=== PATIENT | male | born 1940 | race Caucasian/White ===

== ENCOUNTER 2017-05-07 01:25 | Inpatient (IN) | payer MEDICARE ==
[2017-05-07] VITALS (14 sets, daily range): BP systolic 101–140; BP diastolic 48–68
[~2017-05-07] VITALS: Ht 185.4 cm; Wt 113.9 kg
--- NOTE | 2017-05-07 01:35 | ED.ADGEN ---
Past History Past Medical History: A-Fib, CAD, CVA, Hypertension, Other Past Surgical History: Other Adult General Chief Complaint Chief Complaint " I don't know.. 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 Pt. new to [facility], recent moved from [facility]. No specific ill contacts. Son is nurse who works at [employer]. Pt. has followed with . Pt. had increased tremors tonight and fall at home about approximately mid- night when he got up to go to bathroom. Pt. denies injury. Pt. had been watching TV prior to change in mental status. . Pt. complaints of being cold with chills. Had some confusion- felt it was 1968, but knew Dalia was president. Pt. did take some Ambien before going to bed. Pt. has hx. Sleep apnea, Hx. TIA/CVA, HTN, Afib., Hx. "small" IA, cardiac dz required pacemaker 6 months ago,. Pt. has never smoked. Per family has some changes in speech tonight per family. . Pt. has no complaints currently, but complained of being cold initially. Pt. 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 . Pt. Rt.hand dominate. . Moves feet and arms on request. Lt leg weak, Lt education department registrar weaker. Does have an intentional tremor. Review of Systems Review of Systems Constitutional: Hx. of chills [] Eyes: Denies change in visual acuity, redness, or eye pain [] HENT: Denies nasal congestion or sore throat [] Respiratory: Hx of cough Cardiovascular: No additional information not addressed in HPI [] GI: Denies abdominal pain, nausea, vomiting, bloody stools or diarrhea [] : Denies dysuria or hematuria [] Musculoskeletal: Denies back pain or joint pain [] Integument: Denies rash or skin lesions [] Neurologic: Denies headache, focal weakness or sensory changes [] Family states he is more confused, and speech is off. Endocrine: Denies polyuria or polydipsia [] Family History Family History Non-contributory Current Medications Current Medications Current Medications Medications (Trade) Dose Ordered Sig/Loy Start Time Stop Time Status Last Admin Dose Admin Ondansetron HCl (Zofran) 4 mg 1X ONCE 05/07/17 02:00 05/07/17 02:39 DC 05/07/17 02:00 4 MG Sodium Chloride 1,000 ml @ 100 mls/hr Q10H 05/07/17 01:45 05/07/17 11:44 Vancomycin HCl 1 gm/Sodium Chloride 250 ml @ 250 mls/hr 1X ONCE 05/07/17 02:30 05/07/17 03:29 DC 05/07/17 02:30 250 MLS/HR See Nursing for home meds. Allergies Allergies Allergies Coded Allergies Type Severity Reaction Last Updated Verified iodine Allergy Unknown 05/07/17 Yes Currently not available- 1:46 Hrs. Physical Exam Physical Exam Constitutional:no acute distress, non-toxic appearance. Fever. HENT: Normocephalic, atraumatic, bilateral external ears normal, oropharynx moist, no oral exudates, nose normal. [] Eyes: PERRLA, EOMI, conjunctiva normal, no discharge. [] Neck: Normal range of motion, no tenderness, supple, no stridor. [] Cardiovascular:Tachycardia Heart rate , irregular rhythm, no murmur , PMI to Lt. Lungs & Thorax: Bilateral breath sounds decreased bases on auscultation [] Pacer Lt . Abdomen: Bowel sounds normal, soft, no tenderness, no masses, no pulsatile masses. Obese, Skin: Warm, dry, no erythema, no rash. Back: No tenderness, no CVA tenderness. [] Extremities: No tenderness, no cyanosis, no clubbing,, move limbs on request, trace edema. []Skin red Lt ankle Neurologic: Alert and oriented X 3, normal motor function, normal sensory function, no focal deficits noted. [] Psychologic: Affect anxious, , mood depressed Current Patient Data Vital Signs Vital Signs Date Time Temp Pulse Resp B/P (MAP) Pulse Ox O2 Delivery O2 Flow Rate FiO2 05/07/17 01:30 102.2 71 24 89 Room Air Lab Results Laboratory Tests Test 05/07/17 01:41 05/07/17 01:47 05/07/17 01:50 Blood pH 7.43 (7.35-7.46) Blood Gas PCO2 35 mmHg (35-46) Blood Gas PO2 56 mmHg (71-100) L Blood Gas HCO3 23 mmol/L (21-28) Arterial Bld O2 Saturation (Calc) 90 % (92-99) L FiO2 21 % White Blood Count 13.0 x10^3/uL (4.0-11.0) H Red Blood Count 4.05 x10^6/uL (4.30-5.70) L Hemoglobin 12.6 g/dL (13.0-17.5) L Hematocrit 37.3 % (39.0-53.0) L Mean Corpuscular Volume 92 fL (79-100) Mean Corpuscular Hemoglobin 31 pg (25-35) Mean Corpuscular Hemoglobin Concent 34 g/dL (31-37) Red Cell Distribution Width 14.4 % (11.5-14.5) Platelet Count 173 x10^3/uL (140-400) Neutrophils (%) (Auto) 80 % (31-73) H Lymphocytes (%) (Auto) 13 % (24-48) L Monocytes (%) (Auto) 7 % (0-9) Eosinophils (%) (Auto) 1 % (0-3) Basophils (%) (Auto) 0 % (0-3) Neutrophils # (Auto) 10.3 x10^3uL (1.8-7.7) H Lymphocytes # (Auto) 1.6 x10^3/uL (1.0-4.8) Monocytes # (Auto) 0.9 x10^3/uL (0.0-1.1) Eosinophils # (Auto) 0.1 x10^3/uL (0.0-0.7) Basophils # (Auto) 0.0 x10^3/uL (0.0-0.2) Prothrombin Time 22.8 SEC (9.4-11.4) H Prothrombin Time INR 2.2 (0.9-1.1) H PTT 29 SEC (23-33) D-Dimer (Kristina) 0.62 mg/L (0.00-0.50) H Sodium Level 141 mmol/L (136-145) Potassium Level 3.8 mmol/L (3.5-5.1) Chloride Level 105 mmol/L (98-107) Carbon Dioxide Level 26 mmol/L (21-32) Anion Gap 10 (6-14) Blood Urea Nitrogen 13 mg/dL (8-26) Creatinine 1.3 mg/dL (0.7-1.3) Estimated GFR (Cockcroft-Gault) 53.8 Glucose Level 104 mg/dL (70-99) H Lactic Acid Level 3.0 mmol/L (0.4-2.0) H Calcium Level 8.3 mg/dL (8.5-10.1) L Magnesium Level 1.7 mg/dL (1.8-2.4) L Total Bilirubin 0.4 mg/dL (0.2-1.0) Direct Bilirubin 0.1 mg/dL (0.0-0.2) Aspartate Amino Transferase (AST) 22 U/L (15-37) Alanine Aminotransferase (ALT) 30 U/L (16-63) Alkaline Phosphatase 73 U/L (46-116) Creatine Kinase 165 U/L (39-308) Creatine Kinase MB (Mass) 1.0 ng/mL (0.0-3.6) Creatine Kinase MB Relative Index 0.6 % (0-4) Troponin I Quantitative < 0.017 ng/mL (0-0.055) FO-Qwf-N-Type Natriuretic Peptide 185 pg/mL (0-449) Total Protein 6.5 g/dL (6.4-8.2) Albumin 3.6 g/dL (3.4-5.0) Lipase 100 U/L (73-393) Urine Collection Type Void Urine Color Yellow Urine Clarity Clear Urine pH 5.0 Urine Specific Lennox 1.020 Urine Protein Neg (NEG-TRACE) Urine Glucose (UA) Neg mg/dL (NEG) Urine Ketones (Stick) Neg mg/dL (NEG) Urine Blood Small (NEG) Urine Nitrite Neg (NEG) Urine Bilirubin Neg (NEG) Urine Urobilinogen Dipstick 0.2 mg/dL (0.2 mg/dL) Urine Leukocyte Esterase Neg (NEG) Urine RBC 1-2 /HPF (0-2) Urine WBC Occ /HPF (0-4) Urine Squamous Epithelial Cells Occ /LPF Urine Bacteria Few /HPF (0-FEW) Urine Mucus Slight /LPF Urine Opiates Screen Neg (NEG) Urine Methadone Screen Neg (NEG) Urine Barbiturates Neg (NEG) Urine Phencyclidine Screen Neg (NEG) Urine Amphetamine/Methamphetamine Neg (NEG) Urine Benzodiazepines Screen Neg (NEG) Urine Cocaine Screen Neg (NEG) Urine Cannabinoids Screen Neg (NEG) Urine Ethyl Alcohol Neg (NEG) EKG EKG My interpretation of EKG shows a paced rhythm`at 75, with intraventricular block.[] Radiology/Procedures Radiology/Procedures My interpretation chest x-ray shows Cardiac silhouette. Left lung field infiltrates. Pacer. Degenerative joint changes.[] I interpretation of CT shows volume loss, white matter dz, , small vessel, no finding acute bleed or obvious large CVA- see formal report when available Course & Med Decision Making Course & Med Decision Making Pertinent Labs and Imaging studies reviewed. (See chart for details). Discussed presentation, testing and treatment plan with Dr. Chavez and family. Will admit for further tx. and evaluation. Critical Care 90 min. [] Final Impression Final Impression 1. Mental Status Change 2. Fever and Chills- Sepsis 3. Hypoxia-room air 4. Elevated Lactic Acid 5. Leukocytosis 6. Anemia 7. Hypomagnesium (1,7) 8. Intentional Tremor 9. Hx CADz. 10. Hx. Sleep Apnea 11. Pneumonia 12. Hx. Afib- Pacemaker /Dif. Problems: Dragon Disclaimer Dragon Disclaimer This electronic medical record was generated, in whole or in part, using a voice recognition dictation system. NE TUCKER MD May 07, 2017 01:35
[2017-05-07] MEDS: IV NORMAL SALINE 1,000ML 1,000 ML IV SCH ×2 (01:45→05:04)
[2017-05-07] MEDS ORDERED: ONDANSETRON PF 4 MG/2 ML VIAL. IV ONE (02:00)
--- NOTE | 2017-05-07 02:11 | RAD ---
INDICATION: AMS, CVA COMPARISON: None. TECHNIQUE: Axial CT images obtained through the head without intravenous contrast. One or more of the following individualized dose reduction techniques were utilized for this examination: 1. Automated exposure control; 2. Adjustment of the mA and/or kV according to patient size; 3. Use of iterative reconstruction technique. FINDINGS: No intracranial hemorrhage. No midline shift. Basal cisterns patents. Ventricles and sulci are globally prominent. No acute osseous abnormality. Orbits and paranasal sinuses unremarkable. Scattered foci of low attenuation within the white matter. IMPRESSION: 1. No acute intracranial hemorrhage. 2. Scattered regions of low attenuation within the white matter. Non-specific in nature but frequently secondary to chronic small vessel ischemic disease. 3. Prominence of ventricles and sulci which is frequently secondary to age related volume loss. Electronically signed by: Jemal Diaz MD (05/07/2017 2:07 AM) [facility]
[2017-05-07 02:14] LABS: BGAS PH 7.43 (7.35-7.46)
[2017-05-07] MEDS ORDERED: WARF5TAB7 PO (02:18)
[2017-05-07] MEDS ORDERED: AMIO200T2 PO ×2 (02:18)
--- NOTE | 2017-05-07 02:23 | EKG ---
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
[2017-05-07 02:26] LABS: HEMATOCRIT 37.3 % (39.0-53.0); HEMOGLOBIN 12.6 g/dL (13.0-17.5); MEAN CORPUSCULAR HEMOGLOBIN 31 pg (25-35); MEAN CORPUSCULAR HGB CONC 34 g/dL (31-37); MEAN CORPUSCULAR VOLUME 92 fL (79-100); RED BLOOD COUNT 4.05 x10^6/uL (4.30-5.70)
[2017-05-07 02:27] LABS: BASO % 0 % (0-3); EOS # 0.1 x10^3/uL (0.0-0.7); EOS % 1 % (0-3); LYMPH # 1.6 x10^3/uL (1.0-4.8); LYMPH % 13 % (24-48); MONO # 0.9 x10^3/uL (0.0-1.1); MONO % 7 % (0-9); NEUT # 10.3 x10^3uL (1.8-7.7); NEUT % 80 % (31-73); PLATELET COUNT 173 x10^3/uL (140-400); RED CELL DISTRIBUTION WIDTH 14.4 % (11.5-14.5)
[2017-05-07] MEDS ORDERED: VANCOMYCIN 1 GM in IV NORMAL SALINE 250ML 250 ML IV ONE (02:30)
[2017-05-07 02:34] LABS: ALBUMIN 3.6 g/dL (3.4-5.0); CALCIUM 8.3 mg/dL (8.5-10.1); CREATININE 1.3 mg/dL (0.7-1.3); DIRECT BILIRUBIN 0.1 mg/dL (0.0-0.2); GFR 53.8; MAGNESIUM 1.7 mg/dL (1.8-2.4); POTASSIUM 3.8 mmol/L (3.5-5.1); TOTAL BILIRUBIN 0.4 mg/dL (0.2-1.0); TOTAL PROTEIN 6.5 g/dL (6.4-8.2)
[2017-05-07 02:35] LABS: AMPHETAMINE/METHAMPHETAMINE NEG (NEG); BARBITURATES NEG (NEG); BENZODIAZEPINES NEG (NEG); CANNABINOIDS NEG (NEG); COCAINE NEG (NEG); METHADONE NEG (NEG); OPIATES NEG (NEG); PHENCYCLIDINE NEG (NEG)
[2017-05-07] MEDS ORDERED: IV NORMAL SALINE 250ML 250 ML ONE ×2 (02:39→02:40)
[2017-05-07] MEDS ORDERED: VANCOMYCIN 1 GM VIAL. ONE ×2 (02:39→02:40)
[2017-05-07] MEDS ORDERED: IV NORMAL SALINE 1,000ML 1,000 ML IV ONE (02:45)
[2017-05-07 02:50] LABS: BACTERIA,URINE FEW /HPF (0-FEW); BILIRUBIN,URINE NEG (NEG); CLARITY,URINE CLEAR; COLOR,URINE YELLOW; GLUCOSE,URINE NEG (NEG); NITRITE,URINE NEG (NEG); SQUAMOUS EPITHELIAL CELL,UR OCC /LPF; UROBILINOGEN,URINE 0.2 mg/dL (0.2 mg/dL); WBC,URINE OCC /HPF (0-4)
[2017-05-07] MEDS ORDERED: MAGNESIUM SULFATE 1GM 100 ML IV ONE (03:00)
[2017-05-07] MEDS ORDERED: AZITHROMYCIN 250 MG TABLET. PO ONE (03:00)
[2017-05-07] MEDS ORDERED: ACETAMINOPHEN 500 MG TABLET PO ONE (03:15)
--- NOTE | 2017-05-07 07:25 | RAD ---
Portable chest, 05/07/2017: History: Shortness of breath, altered mental status, cardiac disease A left-sided transvenous pacemaker is in place with 2 leads extending into the right heart. The heart size and pulmonary vascularity are at the upper limits of normal. No pulmonary consolidation is seen. There is no evidence of pleural fluid. IMPRESSION: 1. Borderline vascular congestion. 2. No acute infiltrates.
[2017-05-07 07:34] LABS: BASO # 0.1 x10^3/uL (0.0-0.2); BASO % 1 % (0-3); EOS % 0 % (0-3); HEMATOCRIT 33.7 % (39.0-53.0); HEMOGLOBIN 11.3 g/dL (13.0-17.5); LYMPH # 0.6 x10^3/uL (1.0-4.8); LYMPH % 4 % (24-48); MEAN CORPUSCULAR HEMOGLOBIN 31 pg (25-35); MEAN CORPUSCULAR HGB CONC 34 g/dL (31-37); MEAN CORPUSCULAR VOLUME 93 fL (79-100); MONO # 1.2 x10^3/uL (0.0-1.1); MONO % 8 % (0-9); NEUT # 13.5 x10^3uL (1.8-7.7); NEUT % 88 % (31-73); PLATELET COUNT 150 x10^3/uL (140-400); RED BLOOD COUNT 3.64 x10^6/uL (4.30-5.70); RED CELL DISTRIBUTION WIDTH 14.2 % (11.5-14.5); WHITE BLOOD COUNT 15.4 x10^3/uL (4.0-11.0)
[2017-05-07 07:44] LABS: CALCIUM 7.5 mg/dL (8.5-10.1); CREATININE 1.3 mg/dL (0.7-1.3); GFR 53.8; MAGNESIUM 1.7 mg/dL (1.8-2.4); POTASSIUM 3.2 mmol/L (3.5-5.1); TOTAL BILIRUBIN 0.5 mg/dL (0.2-1.0); TOTAL PROTEIN 5.9 g/dL (6.4-8.2)
[2017-05-07 08:36] LABS: % BANDS 11 % (0-9); % LYMPHS 7 % (24-48); % METAS 1 % (0-0); % MONOS 6 % (0-10); % SEGS 75 % (35-66)
[2017-05-07 08:37] LABS: PLATELET CLUMP PRESENT; PLT ESTIMATE ADEQUATE (ADEQUATE)
[2017-05-07] MEDS: POTASSIUM CHLORIDE 40 MEQ in IV RINGERS SOLUTION,LACTATED 1,000 ML IV SCH ×2 (08:45→20:07)
[2017-05-07] MEDS ORDERED: MAGNESIUM SULFATE 2GM 50 ML IV ONE (09:00)
[2017-05-07] MEDS ORDERED: POTASSIUM CHLORIDE 20 MEQ TABLET.ER. PO ONE (09:00)
[2017-05-07 09:02] LABS: INFLUENZA A PATIENT NEGATIVE (NEGATIVE); INFLUENZA B PATIENT NEGATIVE (NEGATIVE)
--- NOTE | 2017-05-07 11:10 | RAD ---
Bilateral lower extremity venous duplex ultrasound. 05/07/2017 Indication: [Lower extremity edema] Comparison study: [None] Discussion: Sonographic evaluation of the deep veins of bilateral arteries was performed. This includes grayscale imaging and color duplex imaging with spectral analysis. No evidence of deep venous thrombosis is seen. Interrogated veins are compressible and demonstrate augmentable blood flow and color Doppler imaging. Impression: No evidence of deep venous thrombosis involving either lower extremity.
[2017-05-07] MEDS: AMIODARONE HCL 200 MG TABLET PO SCH (11:27)
[2017-05-07] MEDS ORDERED: ACETAMINOPHEN 325 MG TABLET PO PRN (11:30)
--- NOTE | 2017-05-07 11:44 | RAD ---
Indication elevated d-dimer. Ventilation perfusion lung scan was performed. The study is correlated with a single view of the chest obtained earlier the same day. 19 mCi of xenon-133 was administered to evaluate ventilation. 5.5 mCi of technetium labeled MAA was administered to evaluate perfusion. No significant ventilatory abnormality is seen. On the perfusion study no definite V/Q mismatch or dominant profusion anomaly is seen. The study is considered low probability for pulmonary embolus. IMPRESSION: Low probability VQ scan for pulmonary embolus
[2017-05-07] MEDS ORDERED: PIP/TAZO PER PHARMACY MC PRN (15:00)
--- NOTE | 2017-05-07 15:33 | CARD ---
APPROVED REPORT EXAM: Two-dimensional and M-mode echocardiogram with Doppler and color Doppler. Other Information Quality : GoodHR: 69bpm Rhythm : NSR INDICATION Dyspnea, Pacemaker 2D DIMENSIONS RVDd3.3 (2.9-3.5cm)Left Atrium(2D)3.8 (1.6-4.0cm) IVSd1.2 (0.7-1.1cm)Aortic Root(2D)3.4 (2.0-3.7cm) LVDd4.3 (3.9-5.9cm)LVOT Diameter2.4 (1.8-2.4cm) PWd1.2 (0.7-1.1cm)LVDs3.6 (2.5-4.0cm) FS (%) 17.6 %SV30.9 ml LVEF(%)37.0 (>50%) Aortic Valve AoV Peak Daniel.212.4cm/sAoV VTI41.5cm AO Peak GR.18.0mmHgLVOT Peak Daniel.103.0cm/s LVOT VTI 19.44cmAO Mean GR.10mmHg DIOMEDES (VMAX)2.94wt4OSA (VTI)2.19cm2 Mitral Valve MV E Qlxwzqxc40.0cm/sMV E Peak Gr.3mmHg MV DECEL [id number] A Zsurcpad96.7cm/s MV E Mean Gr.1mmHgE/A Ratio1.4 MV A Cglesmnq144ym Pulmonary Valve PV Peak Sgdmnnke379.6cm/sPV Peak Grad.10mmHg Tricuspid Valve TR P. Rwiptsgt590ay/sTR Peak Gr.37mmHg Pulmonary Vein S1 Xygpbjjz54.5cm/sD2 Ikjhxpuj57.7cm/s LEFT VENTRICLE Very difficult exam due to limited patient cooperation. The left ventricle is normal size. There is m ild concentric left ventricular hypertrophy. The left ventricular systolic function is normal and the ejection fraction is within normal range. The Ejection Fraction is 55 % Septal motion consistent wit h conduction abnormality. Transmitral Doppler flow pattern is Grade II-pseudonormal filling dynamics. RIGHT VENTRICLE The right ventricle is normal size. There is normal right ventricular wall thickness. The right ventr icular systolic function is normal. There is a pacemaker lead noted in the RA/RV ATRIA The left atrium size is normal. The right atrium size is normal. The interatrial septum is intact wit h no evidence for an atrial septal defect or patent foramen ovale as noted on 2-D or Doppler imaging. AORTIC VALVE The aortic valve is not well visualized but appears to open adequately. The aortic valve is mildly sc lerotic. Doppler and Color Flow revealed no significant aortic regurgitation. There is no significant aortic valvular stenosis. MITRAL VALVE The mitral valve leaflets are thickened. There is no evidence of mitral valve prolapse. There is no m itral valve stenosis. Doppler and Color Flow revealed no mitral valve regurgitation noted. TRICUSPID VALVE Doppler and Color Flow revealed mild tricuspid regurgitation. The pulmonary artery systolic pressure is estimated at 40 mmHg. There is mild pulmonary hypertension. PULMONIC VALVE The pulmonic valve is not well visualized but appears to open adequately. Doppler and Color Flow reve aled trace pulmonic valvular regurgitation. There is no pulmonic valvular stenosis by spectral Dopple r. GREAT VESSELS The aortic root is normal in size. The ascending aorta is normal in size. The pulmonary artery is nor mal. Suboptimal subcostal window but the IVC is normal in size and collapses >50% with inspiration. PERICARDIAL EFFUSION There is no evidence of significant pericardial effusion. Critical Notification Critical Value: No <Conclusion> The left ventricular systolic function is normal and the ejection fraction is within normal range. Th e Ejection Fraction is 55 % Septal motion consistent with conduction abnormality. Doppler and Color Flow revealed mild tricuspid regurgitation. The pulmonary artery systolic pressure is estimated at 40 mmHg. There is mild pulmonary hypertension. There is a pacemaker lead noted in the RA/RV
[2017-05-07] MEDS ORDERED: WARFARIN 5 MG TABLET. PO SCH (16:00)
[2017-05-07] MEDS: PIPERACILLIN/TAZOBACTAM 3.375 GM in IV NORMAL SALINE 50ML 50 ML IV SCH (16:27)
--- NOTE | 2017-05-07 18:33 | HP ---
ADMIT DATE: 05/07/2017 REASON FOR ADMISSION: Fever, chills, and somewhat altered mental status. HISTORY OF PRESENT ILLNESS: The history was given by the patient. This is a 76-year-old gentleman who woke up at midnight. He felt very weak and went down to the floor. He did no know his name and was not answering questions appropriate. He himself told me he was lifting weights and then felt weak, shaky, and chills. Denies cough or around anyone that was ill. He did fall a couple of weeks ago and hurt the left leg. PAST MEDICAL HISTORY: Sleep apnea. He has a pacemaker, atrial fibrillation, and sick sinus syndrome. SOCIAL HISTORY: Does not smoke. No alcohol. He is retired. He is and takes care of his who is blind. 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 MEDICATIONS: Reviewed and are available on the MAR. ALLERGIES: IODINE. REVIEW OF SYSTEMS: A little bit of left leg pain, weakness, chills, mild shortness of breath, and insomnia. OBJECTIVE: VITAL SIGNS: Temperature this morning was 103 degrees, pulse 100, blood pressure 101/48, respiratory rate 21, and pulse ox was 96% on 2 liters. He also had an 89% on room air in the Emergency Room. GENERAL: The patient is hard of hearing. HEENT: His eyes were slightly bloodshot. His nose is patent. Posterior pharynx is clear. He has a large tongue relative to the posterior pharynx. NECK: Supple. LUNGS: Clear. CARDIOVASCULAR: Regular rhythm and rate. ABDOMEN: Soft and nontender. EXTREMITIES: Left ankle area has a slight bit of erythema and warmth; otherwise, negative. There are no cords palpated in both legs up to the thighs. NEUROLOGIC: Mental status he is a little confused and is currently having chills. LABORATORY DATA: White blood cell count 15.4 with bandemia, hemoglobin 11.3, and hematocrit 33.7. Blood gas showed O2 of 56 with 90% saturation. D-dimer slightly elevated at 0.62. His VQ scan was negative. Potassium was 3.2. Lactic acid was 3.0, has come down to 1.0, magnesium 1.7, and blood cultures have grown out gram-positive cocci in chains. Flu was negative. ASSESSMENT: 1. Sepsis with gram-positive bacteremia. 2. Mild cellulitis of the left ankle area. 3. ____ by history. 4. Sleep apnea by history. 5. Sick sinus syndrome with pacemaker. 6. History of paroxysmal atrial fibrillation. PLAN: IV antibiotics, oxygen, close monitoring, DVT prophylaxis, and will get an echocardiogram as well. BUTCH YOUNGBLOOD DO DR: OK/yaima JOB#: [id number] / [id number]
[2017-05-07] MEDS ORDERED: VANCOMYCIN 2 GM in IV NORMAL SALINE 500ML 500 ML IV ONE (20:00)
[2017-05-07] MEDS: VANCOMYCIN PER PHARMACY MC PRN (20:17)
[2017-05-08] VITALS (22 sets, daily range): BP systolic 104–160; BP diastolic 51–76
[2017-05-08] MEDS: PIPERACILLIN/TAZOBACTAM 3.375 GM in IV NORMAL SALINE 50ML 50 ML IV SCH ×5 (00:44→23:45)
[2017-05-08] MEDS: POTASSIUM CHLORIDE 40 MEQ in IV RINGERS SOLUTION,LACTATED 1,000 ML IV SCH ×2 (05:33→12:17)
[2017-05-08 06:19] LABS: BASO # 0.1 x10^3/uL (0.0-0.2); BASO % 1 % (0-3); EOS % 0 % (0-3); HEMATOCRIT 35.1 % (39.0-53.0); HEMOGLOBIN 11.9 g/dL (13.0-17.5); LYMPH # 1.2 x10^3/uL (1.0-4.8); LYMPH % 8 % (24-48); MEAN CORPUSCULAR HEMOGLOBIN 32 pg (25-35); MEAN CORPUSCULAR HGB CONC 34 g/dL (31-37); MEAN CORPUSCULAR VOLUME 93 fL (79-100); MONO # 0.7 x10^3/uL (0.0-1.1); MONO % 5 % (0-9); NEUT # 13.4 x10^3uL (1.8-7.7); NEUT % 87 % (31-73); PLATELET COUNT 146 x10^3/uL (140-400); RED BLOOD COUNT 3.78 x10^6/uL (4.30-5.70); RED CELL DISTRIBUTION WIDTH 14.1 % (11.5-14.5); WHITE BLOOD COUNT 15.5 x10^3/uL (4.0-11.0)
[2017-05-08 06:30] LABS: ALBUMIN 2.8 g/dL (3.4-5.0); ALBUMIN/GLOBULIN RATIO 0.8 (1.0-1.7); CALCIUM 7.6 mg/dL (8.5-10.1); CREATININE 1.3 mg/dL (0.7-1.3); GFR 53.8; MAGNESIUM 1.9 mg/dL (1.8-2.4); POTASSIUM 3.9 mmol/L (3.5-5.1); TOTAL BILIRUBIN 0.6 mg/dL (0.2-1.0); TOTAL PROTEIN 6.1 g/dL (6.4-8.2)
[2017-05-08] MEDS: AMIODARONE HCL 200 MG TABLET PO SCH (08:13)
[2017-05-08] MEDS: VANCOMYCIN 1.75 GM in IV NORMAL SALINE 500ML 500 ML IV SCH ×2 (08:14→20:08)
[2017-05-08] MEDS ORDERED: methylPREDNISolone SOD SUCC PF 125 MG/2 ML VIAL. IV ONE (08:30)
[2017-05-08] MEDS ORDERED: AZITHROMYCIN 250 MG TABLET. PO SCH (09:00)
[2017-05-08] MEDS: THIAMINE 100 MG in IV NORMAL SALINE 50ML 50 ML IV SCH (09:16)
[2017-05-08] MEDS: ASCORBIC ACID 500 MG TABLET PO SCH (09:18)
[2017-05-08] MEDS ORDERED: FUROSEMIDE 20 MG/2 ML VIAL IVP ONE (09:20)
[2017-05-08] MEDS: IPRATRPIUM/ALBUTEROL 0.5/2.5MG 3 ML NEBU. NEB SCH ×2 (09:44→20:18)
--- NOTE | 2017-05-08 10:41 | PDOC2 ---
MADHAVI BETHEA LOCKSTITCH FRONT ED[employer] TAPE SEWER 05/08/17 1041: CONSULT Date of Admission DATE: 05/08/17 TIME: 10:37 Reason for Consult: tachycardia, abnormal rhythm Problem List Problems Medical Problems: (1) Fever and chills Status: Acute (2) Leukocytosis Status: Acute History of Present Illness Mr Jones is a 76 year old male who presented to the ED with complaints of sudden onset weakness, near syncope and confusion. He was found to be septic, febrile and admitted. Consult was called due to tachy arrhythmia. He denies chest discomfort, dyspnea, cough, fever. He denies congestive symptoms. He has a PPM that was placed about 6 months ago in [place]. He is a fairly poor historian and mostly answers yes or no but was able to articulate that he has a [employer] pacemaker and was supposed to follow up and receive a home monitor. 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 non smoker, no significant ETOH, no illicit drugs Current Medications Home medications include amiodarone and warfarin. Current Medications Sodium Chloride 1,000 ml @ 100 mls/hr Q10H IV Last administered on 05/07/17 05 :04; Start 05/07/17 at 01:45; Stop 05/07/17 at 11:44; Status DC Ondansetron HCl (Zofran) 4 mg 1X ONCE IV Last administered on 05/07/17 02:00; Start 05/07/17 at 02:00; Stop 05/07/17 at 02:39; Status DC Vancomycin HCl 1 gm/Sodium Chloride 250 ml @ 250 mls/hr 1X ONCE IV Last administered on 05/07/17 02:30; Start 05/07/17 at 02:30; Stop 05/07/17 at 03:29; Status DC Sodium Chloride 1,000 ml @ 1,000 mls/hr 1X ONCE IV Last administered on 02:45; Start 05/07/17 at 02:45; Stop 05/07/17 at 03:44; Status DC Ceftriaxone Sodium 1 gm/ Sodium Chloride 50 ml @ 100 mls/hr 1X ONCE IV Last administered on 05/07/17 05:04; Start 05/07/17 at 05:00; Stop 05/07/17 at 05:30; Status DC Azithromycin (Zithromax) 500 mg 1X ONCE PO Last administered on 05/07/17 03:00 ; Start 05/07/17 at 03:00; Stop 05/07/17 at 03:01; Status DC Sodium Chloride 250 ml @ As Directed STK-MED ONCE .ROUTE ; Start 05/07/17 at 02: 39; Stop 05/07/17 at 02:40; Status DC Vancomycin HCl 1 gm STK-MED ONCE .ROUTE ; Start 05/07/17 at 02:39; Stop 05/07/17 at 02:40; Status DC Sodium Chloride 250 ml @ As Directed STK-MED ONCE .ROUTE ; Start 05/07/17 at 02: 40; Stop 05/07/17 at 02:41; Status DC Vancomycin HCl 1 gm STK-MED ONCE .ROUTE ; Start 05/07/17 at 02:40; Stop 05/07/17 at 02:41; Status DC Magnesium Sulfate/ Dextrose 100 ml @ 100 mls/hr 1X ONCE IV Last administered on 05/07/17 03:00; Start 05/07/17 at 03:00; Stop 05/07/17 at 03:59; Status DC Ceftriaxone Sodium 1 gm/ Sodium Chloride 50 ml @ 100 mls/hr DAILY06 IV ; Start 05/08/17 at 06:00; Stop 05/08/17 at 06:00; Status DC Azithromycin (Zithromax) 250 mg DAILY PO ; Start 05/08/17 at 09:00; Stop 05/08/17 at 09:00; Status DC Acetaminophen (Tylenol) 1,000 mg 1X ONCE PO Last administered on 05/07/17 03: 45; Start 05/07/17 at 03:15; Stop 05/07/17 at 03:16; Status DC Magnesium Sulfate 50 ml @ 25 mls/hr 1X ONCE IV Last administered on 05/07/17 08:27; Start 05/07/17 at 09:00; Stop 05/07/17 at 10:59; Status DC Potassium Chloride (Klor-Con) 40 meq 1X ONCE PO Last administered on 05/07/17 11:26; Start 05/07/17 at 09:00; Stop 05/07/17 at 09:01; Status DC Potassium Chloride 40 meq/ Lactated Ringer's 1,020 ml @ 100 mls/hr [id number] IV Last administered on 05/08/17 05:33; Start 05/07/17 at 09:00 Amiodarone HCl (Cordarone) 200 mg DAILY PO Last administered on 05/08/17 08:13 ; Start 05/07/17 at 12:00 Warfarin Sodium (Coumadin) 5 mg DAILY16 PO Last administered on 05/07/17 16:27 ; Start 05/07/17 at 16:00; Stop 05/08/17 at 10:15; Status DC Warfarin Sodium (Coumadin Per Physician) 1 each PRN DAILY PRN MC SEE COMMENTS; Start 05/07/17 at 10:45; Stop 05/08/17 at 09:33; Status DC Acetaminophen (Tylenol) 650 mg PRN Q6HRS PRN PO PAIN / TEMP Last administered on 05/07/17 11:36; Start 05/07/17 at 11:30 Piperacillin Sod/ Tazobactam Sod (Zosyn Per Pharmacy) 1 each PRN DAILY PRN MC SEE COMMENTS; Start 05/07/17 at 15:00 Piperacillin Sod/ Tazobactam Sod 3.375 gm/Sodium Chloride 50 ml @ 100 mls/hr Q6HRS IV Last administered on 05/08/17 05:34; Start 05/07/17 at 16:00 Vancomycin HCl (Vanco Per Pharmacy) 1 each PRN DAILY PRN MC SEE COMMENTS Last administered on 05/07/17 20:17; Start 05/07/17 at 18:30 Vancomycin HCl 2 gm/Sodium Chloride 500 ml @ 250 mls/hr 1X ONCE IV Last administered on 05/07/17 20:08; Start 05/07/17 at 20:00; Stop 05/07/17 at 21:59; Status DC Vancomycin HCl 1.75 gm/Sodium Chloride 500 ml @ 250 mls/hr Q12H IV Last administered on 05/08/17 08:14; Start 05/08/17 at 08:00 Vancomycin HCl 1 each 1X ONCE MC ; Start 05/09/17 at 07:30; Stop 05/09/17 at 07: 31 Methylprednisolone Sodium Succinate (SOLU-Medrol 125MG VIAL) 125 mg 1X ONCE IV Last administered on 05/08/17 09:17; Start 05/08/17 at 08:30; Stop 05/08/17 at 08:31; Status DC Albuterol/ Ipratropium (Duoneb) 3 ml BID NEB Last administered on 05/08/17 09: 44; Start 05/08/17 at 09:00 Ascorbic Acid (Vitamin C) 1,000 mg DAILY PO Last administered on 05/08/17 09:18 ; Start 05/08/17 at 09:00 Thiamine HCl 100 mg/Sodium Chloride 51 ml @ 102 mls/hr DAILY IV Last administered on 05/08/17 09:16; Start 05/08/17 at 09:00 Furosemide (Lasix) 20 mg 1X ONCE IVP Last administered on 05/08/17 09:21; Start 05/08/17 at 09:20; Stop 05/08/17 at 09:21; Status DC Warfarin Sodium (Coumadin Per Pharmacy) 1 each PRN DAILY PRN MC SEE COMMENTS Last administered on 05/08/17 10:22; Start 05/08/17 at 09:15 Warfarin Sodium (Coumadin) 6 mg 1X WARF ONCE PO ; Start 05/08/17 at 16:00; Stop 05/08/17 at 16:01 Active Scripts Active Reported Warfarin Sodium 5 Mg Tablet 5 Mg PO DAILY Amiodarone Hcl 200 Mg Tablet 100 Mg PO BID Amiodarone Hcl 200 Mg Tablet 200 Mg PO DAILY Allergies: Coded Allergies: iodine (Verified Allergy, Unknown, 05/07/17) Review of System as per HPI General: Alert, Oriented X3, Cooperative, No acute distress HEENT: Atraumatic, EOMI Lungs: Clear to auscultation, Normal air movement Heart: Other (irregular rate and rhythm, no gallops, no obvious murmurs, clicks or rubs) Abdomen: Normal bowel sounds, Soft Extremities: No cyanosis, Other (1+ edema, mild erythema left lower extremtiy and left groin.) Neuro: Normal speech Psych/Mental Status: Mood NL VITALS Vital Signs Date Time Temp Pulse Resp B/P (MAP) Pulse Ox O2 Delivery O2 Flow Rate FiO2 05/08/17 09:46 94 Nasal Cannula 2.0 05/08/17 09:32 99 21 146/76 (99) 05/08/17 07:35 98.1 Labs Laboratory Tests Test 05/07/17 01:41 05/07/17 01:47 05/07/17 01:50 05/07/17 02:05 Blood Gas pH 7.43 (7.35-7.46) Blood Gas PCO2 35 mmHg (35-46) Blood Gas PO2 56 mmHg (71-100) Blood Gas HCO3 23 mmol/L (21-28) Arterial Bld O2 Saturation (Calc) 90 % (92-99) FiO2 21 % White Blood Count 13.0 x10^3/uL (4.0-11.0) Red Blood Count 4.05 x10^6/uL (4.30-5.70) Hemoglobin 12.6 g/dL (13.0-17.5) Hematocrit 37.3 % (39.0-53.0) Mean Corpuscular Volume 92 fL (79-100) Mean Corpuscular Hemoglobin 31 pg (25-35) Mean Corpuscular Hemoglobin Concent 34 g/dL (31-37) Red Cell Distribution Width 14.4 % (11.5-14.5) Platelet Count 173 x10^3/uL (140-400) Neutrophils (%) (Auto) 80 % (31-73) Lymphocytes (%) (Auto) 13 % (24-48) Monocytes (%) (Auto) 7 % (0-9) Eosinophils (%) (Auto) 1 % (0-3) Basophils (%) (Auto) 0 % (0-3) Neutrophils # (Auto) 10.3 x10^3uL (1.8-7.7) Lymphocytes # (Auto) 1.6 x10^3/uL (1.0-4.8) Monocytes # (Auto) 0.9 x10^3/uL (0.0-1.1) Eosinophils # (Auto) 0.1 x10^3/uL (0.0-0.7) Basophils # (Auto) 0.0 x10^3/uL (0.0-0.2) Prothrombin Time 22.8 SEC (9.4-11.4) Prothromb Time International Ratio 2.2 (0.9-1.1) Activated Partial Thromboplast Time 29 SEC (23-33) D-Dimer (Kristina) 0.62 mg/L (0.00-0.50) Sodium Level 141 mmol/L (136-145) Potassium Level 3.8 mmol/L (3.5-5.1) Chloride Level 105 mmol/L (98-107) Carbon Dioxide Level 26 mmol/L (21-32) Anion Gap 10 (6-14) Blood Urea Nitrogen 13 mg/dL (8-26) Creatinine 1.3 mg/dL (0.7-1.3) Estimated GFR (Cockcroft-Gault) 53.8 Glucose Level 104 mg/dL (70-99) Lactic Acid Level 3.0 mmol/L (0.4-2.0) Calcium Level 8.3 mg/dL (8.5-10.1) Magnesium Level 1.7 mg/dL (1.8-2.4) Total Bilirubin 0.4 mg/dL (0.2-1.0) Direct Bilirubin 0.1 mg/dL (0.0-0.2) Aspartate Amino Transf (AST/SGOT) 22 U/L (15-37) Alanine Aminotransferase (ALT/SGPT) 30 U/L (16-63) Alkaline Phosphatase 73 U/L (46-116) Creatine Kinase 165 U/L (39-308) Creatine Kinase MB (Mass) 1.0 ng/mL (0.0-3.6) Creatine Kinase MB Relative Index 0.6 % (0-4) Troponin I Quantitative < 0.017 ng/mL (0-0.055) RB-[id number]-Type Natriuretic Peptide 185 pg/mL (0-449) Total Protein 6.5 g/dL (6.4-8.2) Albumin 3.6 g/dL (3.4-5.0) Lipase 100 U/L (73-393) Urine Collection Type Void Urine Color Yellow Urine Clarity Clear Urine pH 5.0 Urine Specific [place] 1.020 Urine Protein Neg (NEG-TRACE) Urine Glucose (UA) Neg mg/dL (NEG) Urine Ketones (Stick) Neg mg/dL (NEG) Urine Blood Small (NEG) Urine Nitrite Neg (NEG) Urine Bilirubin Neg (NEG) Urine Urobilinogen Dipstick 0.2 mg/dL (0.2 mg/dL) Urine Leukocyte Esterase Neg (NEG) Urine RBC 1-2 /HPF (0-2) Urine WBC Occ /HPF (0-4) Urine Squamous Epithelial Cells Occ /LPF Urine Bacteria Few /HPF (0-FEW) Urine Mucus Slight /LPF Body Fluid Culture (LAB) (.) Urine Opiates Screen Neg (NEG) Urine Methadone Screen Neg (NEG) Urine Barbiturates Neg (NEG) Urine Phencyclidine Screen Neg (NEG) Urine Amphetamine/Methamphetamine Neg (NEG) Urine Benzodiazepines Screen Neg (NEG) Urine Cocaine Screen Neg (NEG) Urine Cannabinoids Screen Neg (NEG) Urine Ethyl Alcohol Neg (NEG) Specimen Source (Serology Panel) Urine (.) Strep pneumoniae Special Info Comment (.) Streptococcus pneumoniae Antigen Negative (Negative) Organism Identification (LAB) (.) Thyroid Stimulating Hormone (TSH) 1.588 uIU/mL (0.358-3.740) Test 05/07/17 05:45 05/07/17 07:18 05/07/17 08:35 05/07/17 15:30 Nasal Screen MRSA (PCR) Negative (Negative) White Blood Count 15.4 x10^3/uL (4.0-11.0) Red Blood Count 3.64 x10^6/uL (4.30-5.70) Hemoglobin 11.3 g/dL (13.0-17.5) Hematocrit 33.7 % (39.0-53.0) Mean Corpuscular Volume 93 fL (79-100) Mean Corpuscular Hemoglobin 31 pg (25-35) Mean Corpuscular Hemoglobin Concent 34 g/dL (31-37) Red Cell Distribution Width 14.2 % (11.5-14.5) Platelet Count 150 x10^3/uL (140-400) Neutrophils (%) (Auto) 88 % (31-73) Lymphocytes (%) (Auto) 4 % (24-48) Monocytes (%) (Auto) 8 % (0-9) Eosinophils (%) (Auto) 0 % (0-3) Basophils (%) (Auto) 1 % (0-3) Neutrophils # (Auto) 13.5 x10^3uL (1.8-7.7) Lymphocytes # (Auto) 0.6 x10^3/uL (1.0-4.8) Monocytes # (Auto) 1.2 x10^3/uL (0.0-1.1) Eosinophils # (Auto) 0.0 x10^3/uL (0.0-0.7) Basophils # (Auto) 0.1 x10^3/uL (0.0-0.2) Segmented Neutrophils % 75 % (35-66) Band Neutrophils % 11 % (0-9) Lymphocytes % 7 % (24-48) Monocytes % 6 % (0-10) Metamyelocytes % 1 % (0-0) Platelet Estimate Adequate (ADEQUATE) Platelet Clumps, EDTA Present Sodium Level 140 mmol/L (136-145) Potassium Level 3.2 mmol/L (3.5-5.1) Chloride Level 107 mmol/L (98-107) Carbon Dioxide Level 28 mmol/L (21-32) Anion Gap 5 (6-14) Blood Urea Nitrogen 13 mg/dL (8-26) Creatinine 1.3 mg/dL (0.7-1.3) Estimated GFR (Cockcroft-Gault) 53.8 BUN/Creatinine Ratio 10 (6-20) Glucose Level 108 mg/dL (70-99) Lactic Acid Level 1.0 mmol/L (0.4-2.0) Calcium Level 7.5 mg/dL (8.5-10.1) Magnesium Level 1.7 mg/dL (1.8-2.4) Total Bilirubin 0.5 mg/dL (0.2-1.0) Aspartate Amino Transf (AST/SGOT) 21 U/L (15-37) Alanine Aminotransferase (ALT/SGPT) 24 U/L (16-63) Alkaline Phosphatase 58 U/L (46-116) Total Protein 5.9 g/dL (6.4-8.2) Albumin 3.0 g/dL (3.4-5.0) Albumin/Globulin Ratio 1.0 (1.0-1.7) Influenza Type A (Rapid) Negative (NEGATIVE) Influenza Type B (Rapid) Negative (NEGATIVE) Group A Streptococcus Rapid Negative (NEGATIVE) Test 05/08/17 05:38 05/08/17 09:23 White Blood Count 15.5 x10^3/uL (4.0-11.0) Red Blood Count 3.78 x10^6/uL (4.30-5.70) Hemoglobin 11.9 g/dL (13.0-17.5) Hematocrit 35.1 % (39.0-53.0) Mean Corpuscular Volume 93 fL (79-100) Mean Corpuscular Hemoglobin 32 pg (25-35) Mean Corpuscular Hemoglobin Concent 34 g/dL (31-37) Red Cell Distribution Width 14.1 % (11.5-14.5) Platelet Count 146 x10^3/uL (140-400) Neutrophils (%) (Auto) 87 % (31-73) Lymphocytes (%) (Auto) 8 % (24-48) Monocytes (%) (Auto) 5 % (0-9) Eosinophils (%) (Auto) 0 % (0-3) Basophils (%) (Auto) 1 % (0-3) Neutrophils # (Auto) 13.4 x10^3uL (1.8-7.7) Lymphocytes # (Auto) 1.2 x10^3/uL (1.0-4.8) Monocytes # (Auto) 0.7 x10^3/uL (0.0-1.1) Eosinophils # (Auto) 0.0 x10^3/uL (0.0-0.7) Basophils # (Auto) 0.1 x10^3/uL (0.0-0.2) Prothrombin Time 16.6 SEC (9.4-11.4) Prothromb Time International Ratio 1.6 (0.9-1.1) Sodium Level 136 mmol/L (136-145) Potassium Level 3.9 mmol/L (3.5-5.1) Chloride Level 105 mmol/L (98-107) Carbon Dioxide Level 26 mmol/L (21-32) Anion Gap 5 (6-14) Blood Urea Nitrogen 11 mg/dL (8-26) Creatinine 1.3 mg/dL (0.7-1.3) Estimated GFR (Cockcroft-Gault) 53.8 BUN/Creatinine Ratio 8 (6-20) Glucose Level 112 mg/dL (70-99) Calcium Level 7.6 mg/dL (8.5-10.1) Magnesium Level 1.9 mg/dL (1.8-2.4) Total Bilirubin 0.6 mg/dL (0.2-1.0) Aspartate Amino Transf (AST/SGOT) 35 U/L (15-37) Alanine Aminotransferase (ALT/SGPT) 29 U/L (16-63) Alkaline Phosphatase 51 U/L (46-116) PY-Vvh-I-Type Natriuretic Peptide 1091 pg/mL (0-449) Total Protein 6.1 g/dL (6.4-8.2) Albumin 2.8 g/dL (3.4-5.0) Albumin/Globulin Ratio 0.8 (1.0-1.7) Ammonia 15 mcmol/L (11-34) Images CXR - IMPRESSION: 1. Borderline vascular congestion. 2. No acute infiltrates. Head CT IMPRESSION: 1. No acute intracranial hemorrhage. 2. Scattered regions of low attenuation within the white matter. Non-specific in nature but frequently secondary to chronic small vessel ischemic disease. 3. Prominence of ventricles and sulci which is frequently secondary to age related volume loss. VQ- IMPRESSION: Low probability VQ scan for pulmonary embolus LE US - Impression: No evidence of deep venous thrombosis involving either lower extremity. Assessment/Plan 1. atrial fibrillation with RVR - on warfarin and amiodarone. add beta jaquan for rate control. warfarin per Pharmacy. Echo reveals normal LV function with EF 55%. 2. SSS s/p PPM - I have asked [facility] [employer] to interrogate pacemaker 3. Sepsis with lactic acidosis and positive blood cultures with gram + coccxi - unclear source. Consider DEEPTHI to rule out endocarditis 4. mild cellulitis - mgmt per PCP. 5. HTNHD - mild LVH and diastolic dysfunction by echo 6. mild PHTN - ? secondary to YUAN. Problems: ASIF ALLAN MD 05/08/17 1537: CONSULT Allergies: Coded Allergies: iodine (Verified Allergy, Unknown, 05/07/17) Assessment/Plan Patient seen and examined. Agree with CORE WORKER's assessment and plan. Atrial fib rate better controlled with BB. Continue amiodarone and warfarin. Pacemaker checked - normal device function. A. Fib burden 23%. 2D echo showed LVEF 55%. Continue current treatment for sepsis. Thank you for your consultation. Problems: MADHAVI BETHEA APRN May 08, 2017 10:41 ASIF ALLAN MD May 08, 2017 15:37
--- NOTE | 2017-05-08 11:50 | RAD ---
Testicular ultrasound 05/08/2017 at 1005 hours Indication: Bilateral scrotal swelling and redness of the right scrotal sac. Comparison: None available Technique: Sonographic imaging of the testicles was performed utilizing grayscale, color Doppler and spectral waveform analysis Findings: The right testicle measures 3.6 x 4.5 x 2.6 cm. Left testicle measures 3.4 x 3.1 x 3.1 cm. The testicles are homogenous in echotexture. There is arterial and venous waveform identified within the testicles bilaterally time of imaging. Mild skin thickening of the scrotal wall measuring 3 mm bilaterally. Right epididymis appears enlarged and mildly hyperemic. Small right hydrocele is present. Moderate left hydrocele is present. No significant varicoceles. Imaging of the left upper thigh demonstrates skin thickening without underlying abscess. Impression: 1. There is skin thickening of the right scrotum with enlarged and mildly hyperemic epididymis suggestive of epididymitis. Testicles appear normal. No sonographic evidence for gas within the subcutaneous soft tissues. 2. Skin thickening of the left scrotum but normal-appearing left epididymis. 3. Bilateral simple hydroceles, left greater the right. 4. Skin thickening in the left groin area without underlying abscess. Findings may be seen in setting of cellulitis.
--- NOTE | 2017-05-08 12:05 | RAD ---
AP chest, 05/08/2017: History: Shortness of breath Comparison is made to yesterday's study. A left-sided transvenous pacemaker is in place with 2 leads extending into the right heart. The heart is at the upper limits of normal in size. The pulmonary vascularity is now within normal limits. No pulmonary infiltrates are seen. There is no evidence of pleural fluid. IMPRESSION: No acute cardiopulmonary abnormality is detected.
[2017-05-08] MEDS: METOPROLOL TART IMMED RELEASE 25 MG TABLET PO SCH ×2 (12:14→20:07)
[2017-05-08] MEDS ORDERED: WARFARIN 6 MG TABLET. PO ONE (16:00)
[2017-05-09] VITALS (21 sets, daily range): BP systolic 89–147; BP diastolic 53–85
--- NOTE | 2017-05-09 01:39 | PN ---
DATE: PROBLEMS: 1. Group C beta hemolytic strep bacteremia/sepsis. 2. Epididymitis. 3. Cellulitis of left ankle. 4. Atrial fibrillation with rapid ventricular response. 5. Bilateral hydroceles. 6. Sick sinus syndrome with pacemaker. 7. Deep venous thrombosis prophylaxis. NARRATIVE: The patient has started to get better as the day has progressed. We will plan to transfer him down to [place] for a transesophageal echo, however, they would not be doing in the late afternoon, so we decided to keep him here. There is no Urology down at [place] and Dr. Garcia is out of town. He is on the appropriate antibiotics for epididymitis. His exam was completely negative for pain in this area, and he does not have any risk factors for this. He remains lethargic and sleepy, but again has gotten better with the day. OBJECTIVE: VITAL SIGNS: His T-max in the last 24 hours 99.3, pulse 77, respirations 17, blood pressure 114/63, and pulse ox is 97% on 2 liters. His intake was 4135 with output 650, not sure if that is accurate. His weight has gone up about 5 pounds. GENERAL: Face is slightly flushed. He is hard of hearing. HEENT: His tongue is moist. NECK: Supple. LUNGS: Clear. CARDIOVASCULAR: Irregular rhythm and rate with some atrial fibrillation intermittently. ABDOMEN: Soft and nontender. EXTREMITIES: He has a streak of erythema on the top left thigh. His scrotum is very swollen. Epididymis was palpated and did not produce tenderness. He has bilateral hydroceles by exam. The penis is uncircumcised. His left ankle has a small area of erythema and swelling. LABORATORY DATA: His WBC is 15.5, hemoglobin 11.9, hematocrit 35.1 without bandemia and BNP went up to 1091. One blood culture is growing out beta hemolytic strep group C, sensitive to usually penicillins. PLAN: Continue the Zosyn and vancomycin. Cardiology still will be following, may consider a DEEPTHI on Thursday. He received a small dose of Lasix today because of the excessive fluid he got. We will continue to monitor closely. BUTCH YOUNGBLOOD DO DR: OK/yaima JOB#: [id number] / [id number]
[2017-05-09] MEDS: PIPERACILLIN/TAZOBACTAM 3.375 GM in IV NORMAL SALINE 50ML 50 ML IV SCH ×3 (05:58→18:11)
--- NOTE | 2017-05-09 06:33 | CONS ---
DATE OF CONSULTATION: 05/08/2017 NEUROLOGY CONSULTATION REFERRING PHYSICIAN: Dr. Chavez. REASON FOR CONSULTATION: Mental status changes, rule out stroke. HISTORY OF PRESENT ILLNESS: This is a 76-year-old right-handed white male who was admitted through the Emergency Room after he presented with a new onset of generalized weakness, near syncope, and confusion. The patient was found to be septic with elevated white blood cells and having low temperature and having fever. Currently, he complains of mild frontal headaches. He denies nausea, vomiting, chest pain, shortness of breath or palpitation. The patient was admitted to ICU for further observation while he was sitting he leaned to the right side and had one-sided weakness. Initial nonenhanced head CT scan revealed no acute intracranial process, but showed chronic small vessel ischemic changes. PAST MEDICAL HISTORY: Significant for pacemaker placement, atrial fibrillation and sick sinus syndrome. SOCIAL HISTORY: The patient is . 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 He denies smoking, alcohol drinking, or illicit drug use. FAMILY HISTORY: Noncontributory. CURRENT MEDICATIONS: Metoprolol, vancomycin, warfarin, vitamin C, albuterol inhaler, Zosyn, amiodarone and Tylenol. ALLERGIES: IODINE. REVIEW OF SYSTEMS: A 10-point review of system was performed as mentioned in history of present illness, otherwise unremarkable. PHYSICAL EXAMINATION: GENERAL: Obese white male, not in acute distress. He weighs 254 pounds. VITAL SIGNS: Blood pressure 119/59, respiratory rate 20, pulse is 82 and regular, oxygen saturation is 99% on 2 liters by nasal cannula and temperature 97.8. HEENT: Normocephalic, atraumatic, otherwise unremarkable. NECK: Supple. Negative for carotid bruit, lymphadenopathy or thyromegaly. LUNGS: Clear to A and P. CARDIOVASCULAR: Regular rate and rhythm, normal S1, S2. There is no S3, S4 or murmur. ABDOMEN: Soft. Bowel sounds positive. EXTREMITIES: Negative for cyanosis, clubbing, edema, but positive for mild cellulitis of the left distal lower extremity. NEUROLOGIC: Mental Status: The patient is alert and oriented x 3. The speech is fluent. There is no language dysfunction. Memory, judgment, and abstract thinking are normal. The patient denies hallucination or delusion. Cranial Nerves: Visual roblero are full. The pupils are reactive to light and accommodation. The extraocular movements are intact. There is no nystagmus. There is no facial motor or sensory deficit. Hearing is diminished bilaterally. The palate is elevated symmetrically. Sternocleidomastoid muscles are powerful bilaterally. The patient shrugs his shoulders symmetrically and protrudes his tongue in the midline without fasciculation or atrophy. Motor: No focal muscle bulk was seen. The tone is normal. The strength is 5/5 throughout. Sensory examination revealed normal pinprick, light touch, vibratory and position senses. Deep tendon reflexes were symmetric and hypoactive with absent Achilles responses. Gait not tested. DIAGNOSTIC DATA: Nonenhanced head CT scan as described above. Chest x-ray revealed no evidence of acute process. VQ is negative for PE. Venous sonogram of the lower extremities revealed no evidence of DVT. LABORATORY DATA: CBC revealed white blood cells of 15,500, hemoglobin 11.9, hematocrit 35.1, platelet count 146,000 with a left shift. Chemistry revealed sodium of 136, potassium 3.9, chloride 105, CO2 of 26, BUN 11, creatinine 1.3, glucose 112, calcium is low at 7.6 and magnesium normal. Liver enzymes are normal. Urine drug screen is negative. Urinalysis is negative. PT is 16.6, INR 1.6 and D-dimer 0.62. Blood culture is positive for gram-positive cocci. IMPRESSION: 1. Acute mental status changes, likely due to infectious encephalopathy due to septicemia. 2. Status post pacemaker placement 6 months ago. 3. Sleep apnea and paroxysmal atrial fibrillation. 4. Possible mild cellulitis of the left distal lower extremity. 5. Negative neurological examination for a stroke. RECOMMENDATIONS: Continue with current medical management initiated by Dr. Chavez. M Dany HERRERA MD DR: SORIN/yaima JOB#: [id number] / [id number]
[2017-05-09 07:41] LABS: VANC TR 17.7 mcg/mL (10.0-20.0)
[2017-05-09 08:12] LABS: ALBUMIN 2.5 g/dL (3.4-5.0); ALBUMIN/GLOBULIN RATIO 0.7 (1.0-1.7); BASO % 0 % (0-3); CALCIUM 8.2 mg/dL (8.5-10.1); CREATININE 1.2 mg/dL (0.7-1.3); EOS % 0 % (0-3); HEMATOCRIT 36.2 % (39.0-53.0); HEMOGLOBIN 12.5 g/dL (13.0-17.5); LYMPH # 1.1 x10^3/uL (1.0-4.8); LYMPH % 6 % (24-48); MAGNESIUM 2.2 mg/dL (1.8-2.4); MEAN CORPUSCULAR HEMOGLOBIN 31 pg (25-35); MEAN CORPUSCULAR HGB CONC 34 g/dL (31-37); MEAN CORPUSCULAR VOLUME 91 fL (79-100); MONO # 1.1 x10^3/uL (0.0-1.1); MONO % 6 % (0-9); NEUT # 16.7 x10^3uL (1.8-7.7); NEUT % 88 % (31-73); PLATELET COUNT 154 x10^3/uL (140-400); POTASSIUM 3.9 mmol/L (3.5-5.1); RED BLOOD COUNT 3.96 x10^6/uL (4.30-5.70); RED CELL DISTRIBUTION WIDTH 14.2 % (11.5-14.5); TOTAL BILIRUBIN 0.3 mg/dL (0.2-1.0); TOTAL PROTEIN 6.2 g/dL (6.4-8.2); WHITE BLOOD COUNT 18.9 x10^3/uL (4.0-11.0)
[2017-05-09] MEDS: VANCOMYCIN 1.75 GM in IV NORMAL SALINE 500ML 500 ML IV SCH (08:29)
[2017-05-09] MEDS: VANCOMYCIN PER PHARMACY MC PRN (08:52)
[2017-05-09] MEDS ORDERED: IV NORMAL SALINE 50ML 50 ML ONE (09:19)
[2017-05-09] MEDS ORDERED: THIAMINE 200 MG/2 ML VIAL. IV ONE (09:19)
[2017-05-09] MEDS: AMIODARONE HCL 200 MG TABLET PO SCH (09:22)
[2017-05-09] MEDS: METOPROLOL TART IMMED RELEASE 25 MG TABLET PO SCH ×2 (09:22→21:04)
[2017-05-09] MEDS: ASCORBIC ACID 500 MG TABLET PO SCH (09:23)
[2017-05-09] MEDS: THIAMINE 100 MG in IV NORMAL SALINE 50ML 50 ML IV SCH (09:23)
[2017-05-09] MEDS: IPRATRPIUM/ALBUTEROL 0.5/2.5MG 3 ML NEBU. NEB SCH ×2 (11:03→20:19)
[2017-05-09] MEDS ORDERED: methylPREDNISolone SOD SUCC PF 125 MG/2 ML VIAL. IV ONE (13:00)
[2017-05-09] MEDS ORDERED: WARFARIN 6 MG TABLET. PO ONE (16:00)
[2017-05-09] MEDS: PRIMIDONE 50 MG TABLET PO SCH (21:03)
[2017-05-10] VITALS (13 sets, daily range): BP systolic 99–144; BP diastolic 47–83
[2017-05-10] MEDS: PIPERACILLIN/TAZOBACTAM 3.375 GM in IV NORMAL SALINE 50ML 50 ML IV SCH ×2 (00:02→06:15)
[2017-05-10] MEDS: ASCORBIC ACID 500 MG TABLET PO SCH (08:28)
[2017-05-10] MEDS: THIAMINE 100 MG in IV NORMAL SALINE 50ML 50 ML IV SCH (08:28)
[2017-05-10] MEDS: AMIODARONE HCL 200 MG TABLET PO SCH (08:29)
[2017-05-10] MEDS: METOPROLOL TART IMMED RELEASE 25 MG TABLET PO SCH ×2 (08:30→21:33)
[2017-05-10] MEDS: IPRATRPIUM/ALBUTEROL 0.5/2.5MG 3 ML NEBU. NEB SCH ×2 (09:00→20:35)
[2017-05-10 10:34] LABS: CALCIUM 8.3 mg/dL (8.5-10.1); CREATININE 1.2 mg/dL (0.7-1.3); POTASSIUM 3.8 mmol/L (3.5-5.1)
[2017-05-10 10:36] LABS: BASO % 0 % (0-3); EOS % 0 % (0-3); HEMATOCRIT 38.1 % (39.0-53.0); HEMOGLOBIN 12.9 g/dL (13.0-17.5); LYMPH # 1.1 x10^3/uL (1.0-4.8); LYMPH % 6 % (24-48); MEAN CORPUSCULAR HEMOGLOBIN 31 pg (25-35); MEAN CORPUSCULAR HGB CONC 34 g/dL (31-37); MEAN CORPUSCULAR VOLUME 92 fL (79-100); MONO # 0.8 x10^3/uL (0.0-1.1); MONO % 4 % (0-9); NEUT # 16.5 x10^3uL (1.8-7.7); NEUT % 90 % (31-73); PLATELET COUNT 189 x10^3/uL (140-400); RED BLOOD COUNT 4.15 x10^6/uL (4.30-5.70); RED CELL DISTRIBUTION WIDTH 14.4 % (11.5-14.5); WHITE BLOOD COUNT 18.4 x10^3/uL (4.0-11.0)
[2017-05-10 11:23] LABS: % BANDS 8 % (0-9); % LYMPHS 6 % (24-48); % MONOS 4 % (0-10); % SEGS 82 % (35-66); PLT ESTIMATE ADEQUATE (ADEQUATE)
[2017-05-10 11:24] LABS: OVALOCYTES OCC; POLYCHROMASIA SLIGHT; TOXIC VACUOLATION SLIGHT
[2017-05-10] MEDS ORDERED: WARFARIN 5 MG TABLET. PO ONE (16:00)
[2017-05-10] MEDS: PRIMIDONE 50 MG TABLET PO SCH (21:34)
--- NOTE | 2017-05-10 23:06 | RAD ---
INDICATION: [id number] Check PICC line placement. Comparison to 05/08/17 was sent. COMPARISON: May 08, 2017 FINDINGS: Single view of chest obtained. Cardiac silhouette is prominent in size. Right-sided PICC line with tip near expected location of atriocaval junction. No definite focal airspace consolidation. IMPRESSION: PICC line with tip near expected location of atriocaval junction. Electronically signed by: Jemal Diaz MD (05/10/2017 11:03 PM) [id number]
--- NOTE | 2017-05-11 00:53 | PN ---
DATE: 05/09/2017 SUBJECTIVE: The patient complains of chronic and intermittent tremor of the hands. He denies any other new medical neurological complaints. The patient drinks and eats well. He denies headaches, visual disturbances, chest pain, shortness of breath or palpitations. OBJECTIVE: GENERAL: Obese white male, not in acute distress. VITAL SIGNS: Blood pressure 99/59, respiratory rate is 15, pulse is 86 and regular, afebrile, oxygen saturation 97% on 1 liter by nasal cannula. HEENT: Normocephalic, atraumatic, otherwise unremarkable. NECK: Supple. Negative for carotid bruit, lymphadenopathy or thyromegaly. LUNGS: Clear to A and P. CARDIOVASCULAR: Regular rhythm, normal S1, S2. ABDOMEN: Soft. Bowel sounds positive. No bowel mass, organomegaly or tenderness. EXTREMITIES: Negative for cyanosis, clubbing or pitting edema with mild erythema of the distal left lower extremity. Gait not tested. NEUROLOGICAL: The patient has mild postural and kinetic tremors of both upper extremities. LABORATORY DATA: CBC revealed white blood cells of 18.9 thousand, hemoglobin 12.5, hematocrit 36.2, platelet count 154,000. Chemistry: Sodium was 139, potassium 3.9, chloride 106, CO2 25. BUN 16, creatinine 1.2, glucose 149, calcium 8.2. Liver enzymes are normal. PT 17.7, INR 1.7. IMPRESSION: 1. Acute mental status changes -- improved. 2. Atrial fibrillations. 3. Obstructive sleep apnea. 4. Sepsis and positive blood culture. 5. 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 RECOMMENDATIONS: 1. Continue with current management initiated by Dr. Chavez. 2. We will start the patient on primidone 25 mg at bedtime and increase it gradually as needed. M Dany HERRERA MD DR: SORIN/yaima JOB#: [id number] / [id number]
--- NOTE | 2017-05-11 01:19 | PN ---
DATE: 05/10/2017 PROBLEMS: 1. Group C beta hemolytic strep bacteremia/sepsis. 2. Acute hypoxic respiratory failure. 3. Noninfectious epididymitis. 4. Cellulitis of the left ankle. 5. Atrial fibrillation with rapid ventricular response. 6. Bilateral hydroceles. 7. Sick sinus syndrome with pacemaker. 8. DVT prophylaxis. 9. Long-term use of anticoagulants and elevated D-dimer, PE ruled out. The patient is starting to do much, much better. He is still requiring oxygen, but does not have it at home. This must be part of a sepsis picture as he did not have pneumonia. He does not want to go to the swing bed status or rehabilitation. He wants to go home. He has a lot of issues. He will still need a total of 2 weeks of Zosyn per Infectious Disease Physician. I have explained that to him. I have also put in his discharge what he needs to have done as an outpatient. OBJECTIVE: VITAL SIGNS: Blood pressure is 107/66, pulse 77, respirations 30, pulse ox was 97% on 1 liter, actually took him earlier in the day it did came down to 1 liter and he was about 90%. GENERAL: His color is good. NECK: Supple. LUNGS: Clear. CARDIOVASCULAR: Regular rhythm and rate. ABDOMEN: Soft, nontender. EXTREMITIES: Improvement of the cellulitis to the left ankle. He still has the hydroceles, but the swelling in the scrotum has gone down considerably. LABORATORY DATA: Also his INR is 2.1 today. PLAN: Hopefully, he can be discharged tomorrow after Griselda Frank makes arrangements for the IV antibiotics. We will need a PICC line placed today. BUTCH YOUNGBLOOD DO DR: OK/yaima JOB#: [id number] / [id number]
[2017-05-11 02:51] VITALS: BP 153/90
[2017-05-11 08:04] LABS: ALBUMIN 2.6 g/dL (3.4-5.0); ALBUMIN/GLOBULIN RATIO 0.9 (1.0-1.7); CALCIUM 8.1 mg/dL (8.5-10.1); CREATININE 1.1 mg/dL (0.7-1.3); GFR 65.3; POTASSIUM 3.5 mmol/L (3.5-5.1); TOTAL BILIRUBIN 0.4 mg/dL (0.2-1.0); TOTAL PROTEIN 5.6 g/dL (6.4-8.2)
[2017-05-11 08:09] LABS: BASO # 0.1 x10^3/uL (0.0-0.2); BASO % 1 % (0-3); EOS # 0.2 x10^3/uL (0.0-0.7); EOS % 2 % (0-3); HEMATOCRIT 34.9 % (39.0-53.0); HEMOGLOBIN 12.2 g/dL (13.0-17.5); LYMPH # 1.9 x10^3/uL (1.0-4.8); LYMPH % 19 % (24-48); MEAN CORPUSCULAR HEMOGLOBIN 32 pg (25-35); MEAN CORPUSCULAR HGB CONC 35 g/dL (31-37); MEAN CORPUSCULAR VOLUME 91 fL (79-100); MONO # 0.9 x10^3/uL (0.0-1.1); MONO % 9 % (0-9); NEUT # 6.7 x10^3uL (1.8-7.7); NEUT % 69 % (31-73); PLATELET COUNT 187 x10^3/uL (140-400); RED BLOOD COUNT 3.82 x10^6/uL (4.30-5.70); RED CELL DISTRIBUTION WIDTH 14.3 % (11.5-14.5); WHITE BLOOD COUNT 9.8 x10^3/uL (4.0-11.0)
[2017-05-11] MEDS: IPRATRPIUM/ALBUTEROL 0.5/2.5MG 3 ML NEBU. NEB SCH (08:13)
[2017-05-11] MEDS: AMIODARONE HCL 200 MG TABLET PO SCH (08:29)
[2017-05-11] MEDS: ASCORBIC ACID 500 MG TABLET PO SCH (08:30)
[2017-05-11] MEDS: THIAMINE 100 MG in IV NORMAL SALINE 50ML 50 ML IV SCH (08:30)
[2017-05-11] MEDS ORDERED: METOPROLOL SUCC 24HR ER 25 MG TAB.ER.24H. PO SCH (09:00)
[2017-05-11 09:02] VITALS: BP 99/55
[2017-05-11] MEDS ORDERED: PRIM50TA24 PO (10:16)
[2017-05-11] MEDS ORDERED: METO-239 PO (10:19)
[2017-05-11 10:36] VITALS: BP 112/52
--- NOTE | 2017-05-11 11:27 | PDOC ---
PROVIDER NOTE PROVIDER NOTE PROVIDER NOTE Late entry for 05/10/2017 S: Pt. denies any chest pain or dyspnea. O: Irregular heart tones Mild rhonchi soft abdomen Minimal edema No focal neurologic def no rashes Labs/Meds/Telemetry reviewed. Impression: Atrial fibrillation Sepsis - Likely secondary to cellulitis Plan: 1. Continue amiodarone, warfarin and low dose b-[id number] 2. Outpt f/u with Dr. Redding for INR checks 3. F/u in the office with us in 4 weeks. Thank you. BEAU HYDE MD May 11, 2017 11:27
--- NOTE | 2017-05-11 12:42 | PN ---
DATE: 05/10/2017 SUBJECTIVE: The patient denies any new medical or neurological complaints. He continues to have complaints of mild tremor of the hands mainly when he uses his hands. He denies headaches, visual disturbances, slurred speech, dizziness, chest pain, shortness of breath or palpitation. OBJECTIVE: GENERAL: Obese white male, not in acute distress. VITAL SIGNS: Blood pressure 107/66, respiratory rate 30, pulse is 77 and regular, oxygen saturation is 96% on room air. HEENT: Normocephalic, atraumatic, otherwise unremarkable. NECK: Supple. Negative for carotid bruit, lymphadenopathy or thyromegaly. LUNGS: Clear to A and P. CARDIOVASCULAR: normal S1, S2. ABDOMEN: Soft. Bowel sounds positive. EXTREMITIES: Negative for cyanosis, clubbing or pitting edema. NEUROLOGICAL: Mental Status: The patient is alert and oriented x 3. Speech is fluent. There is no language dysfunction. Cranial nerves are intact except for mild bilateral hearing loss. Motor Examination: No focal muscle bulk was seen. The tone is normal. The strength is 5/5 throughout. Sensory examination revealed normal pinprick, light touch, vibratory and position senses. Deep tendon reflexes were symmetric and active without pathologic responses. Gait not tested. The patient has mild kinetic and postural tremor of hands. IMPRESSION: 1. Acute mental status changes -- resolved. 2. Septicemia. 3. Mild postural and kinetic tremor, may represent senile tremor. 4. Multiple medical problems include atrial fibrillations, urinary tract infections. RECOMMENDATIONS: 1. Continue with current management initiated by Dr. Chavez for septicemia. 2. Would increase primidone 250 mg at bedtime. M Dany HERRERA MD DR: SORIN/yaima JOB#: [id number] / [id number]
--- NOTE | 2017-05-11 19:09 | DS ---
DATE OF DISCHARGE: 05/11/2017 DISCHARGE DIAGNOSES: 1. Group C beta-hemolytic streptococcal bacteremia/sepsis. 2. Acute hypoxic respiratory failure secondary to sepsis. 3. Non-infectious epididymitis. 4. Cellulitis of the left ankle. 5. Atrial fibrillation with rapid ventricular response, which has resolved. 6. Bilateral hydroceles. 7. Sick sinus syndrome with pacemaker. 8. Deep venous thrombosis prophylaxis. 9. Long-term use of anticoagulants. 10. Elevated D-dimer, pulmonary embolism ruled out. 11. Protein calorie malnutrition related to illness. 12. Hypomagnesemia, corrected. 13. Hypokalemia, corrected. HOSPITAL COURSE: This is a 76-year-old gentleman who was admitted with altered mental status and was found to be septic with group C strep bacteremia. The source appears to be from left lower ankle cellulitis. The patient was aggressively treated with fluid resuscitation, IV antibiotics, and electrolytes were also corrected. He has slowly gotten better and actually is not requiring oxygen at the time of discharge. Please see all other notes for further information. VITAL SIGNS: Blood pressure is 129/75, pulse 73, temperature 97.7. PLAN: Discharge plans and instructions were typed out in the [facility] discharge. He will continue with 14 days of IV Rocephin per Infectious Disease's recommendation and all his followup that he needs to be done is on his chart. He will be discharged with home health. He did get a PICC line and his INR was adjusted while he was in the hospital. BUTCH YOUNGBLOOD DO DR: OK/yaima JOB#: [id number] / [id number]
[2017-05-11] MEDS ORDERED: PRIMIDONE 50 MG TABLET PO SCH (21:00)
--- NOTE | 2017-05-12 00:32 | PN ---
DATE: 05/11/2017 SUBJECTIVE: The patient denies any new medical or neurological complaints. His tremor has improved on medications. OBJECTIVE: GENERAL: Obese white male, not in acute distress. VITAL SIGNS: Blood pressure 129/75, respiratory rate 23, pulse is 73 and regular, temperature is 97.8, oxygen saturation 97% on room air. HEENT: Normocephalic, atraumatic, otherwise unremarkable. NECK: Supple. Negative for carotid bruit, lymphadenopathy or thyromegaly. LUNGS: Clear to A and P. CARDIOVASCULAR: Regular rate and rhythm, normal S1, S2. ABDOMEN: Soft. Bowel sounds positive. EXTREMITIES: Negative for cyanosis, clubbing or pitting edema. NEUROLOGICAL: Mental Status: The patient is alert and oriented x 3. Speech is fluent. There is no language dysfunction. Memory, judgment, and abstract thinking are normal. The patient denies hallucination or delusion. Cranial nerves are intact. Motor examination revealed no focal motor deficit. The patient has mild tremor on [id number]. His kinetic and postural tremors have improved on primidone. Sensory examination revealed normal pinprick and light touch senses throughout. Deep tendon reflexes were hypoactive with absent Achilles responses. Gait: The patient has a steady stance. LABORATORY DATA: CBC revealed white blood cells of 9.8 thousand, hemoglobin 12.2, hematocrit 34.9, platelet count 187,000. Chemistry revealed sodium of 144, potassium 3.5, chloride 107, CO2 31, BUN 21, creatinine 1.1, glucose 80, calcium 8.1. IMPRESSION: 1. Mental status changes - resolved. 2. Postural and kinetic tremors may represent senile tremor. 3. Septicemia -- improved. 4. Obstructive sleep apnea, paroxysmal atrial fibrillation. RECOMMENDATIONS: 1. Continue with current management initiated by Dr. Chavez. 2. Continue with Primidone 50 mg at bedtime. 3. Follow up in Neurology Clinic after 1-2 weeks from discharge. M Dany HERRERA MD DR: SORIN/yaima JOB#: [id number] / [id number]
--- NOTE | 2017-05-15 06:14 | ACF ---
Admission Criteria Forms SEPSIS and Other Febrile Illness Without Focal Infection (Place 'X' for any and all applicable criteria): Admission to inpatient status for two midnights or more is indicated for ANY ONE of the following (1)(2)(3): [X] I. Bacteremia [ ]II. Suspected or identified specific infection requiring hospitalization (eg, meningitis, endocarditis) [ ]III. Hemodynamic instability [ ]IV. Temperature > 104.9 0F (40.5 0C) (oral) [ ]V. Core (rectal) temperature < 95 0F (35 0C) (eg, thought to be due to infection) [ ]. Altered mental status that is severe or persistent [ ]VII. Failure or unavailability of outpatient antimicrobial treatment [ ]VIII. Hypoxemia [ ]IX. Seizures [ ]X. New coagulopathy (eg, reduced platelet count consistent with disseminated intravascular coagulation) [ ]XI. Inpatient admission required [B] rather than observation care because of 1 or more of the following 1) Tachypnea not responsive to outpatient or observation treatment 2) Metabolic disorder (eg, hypoglycemia, hyperglycemia, metabolic acidosis ) that persists despite outpatient and observation care treatment 3) Evidence of end-organ dysfunction (eg, rising creatinine, myocardial ischemia, rising liver function tests) that is severe or persists despite observation care treatment 4) Temperature > 103.1 0F (39.5 0C) (oral) that is not responsive to observation care treatment 5) Dehydration that is severe or persistent 6) Parenteral antimicrobial regimen that must be implemented on inpatient basis (eg, infusion or monitoring needs beyond capabilities of outpatient parenteral therapy) 7) Strict or protective (eg, laminar flow) isolation 8) Other condition, treatment or monitoring requiring inpatient admission Extended stay beyond goal length of stay may be needed for(1)(3) [ ]a) Persistent Hypotension [ ]b) Positive blood cultures [ ]c) Lack of improvement on antimicrobial treatment (eg, continued fever) [ ]d) Active comorbid illness (eg, heart failure, renal failure) [ ]e) High-risk febrile neutropenia [ ]f) Insufficient oral intake [ ]g) insufficient oral intake The original [facility] [employer] content created by [email or web address] has been revised. The portions of the content which have been revised are identified through the use of italic text, and [facility] [employer] has neither reviewed nor approved the modified material. All other unmodified content is copyright [facility]. Please see references footnoted in the original [facility] edition 2015 Admission Criteria Met?: Yes LACEY COOMBS May 15, 2017 06:14
== END 2017-05-11 11:00 | disposition home health service (06) | DRG 871 ==
LOC: ER 01:25 → ICU 02:30
PROVIDERS: ADMIT Family Medicine; ATTEND Family Medicine
PROC: 02HV33Z Insertion of Infusion Device into Superior Vena Cava, Percutaneous Approach (ICD-10-PCS; principal; 2017-05-10)
PROC: 5A09357 Assistance with Respiratory Ventilation, Less than 24 Consecutive Hours, Continuous Positive Airway Pressure (ICD-10-PCS; 2017-05-10)
DX: A40.9 Streptococcal sepsis, unspecified (principal); G93.41 Metabolic encephalopathy; J96.01 Acute respiratory failure with hypoxia; E46 Unspecified protein-calorie malnutrition; L03.116 Cellulitis of left lower limb; N39.0 Urinary tract infection, site not specified; I48.0 Paroxysmal atrial fibrillation; E83.42 Hypomagnesemia; I10 Essential (primary) hypertension; E87.6 Hypokalemia; G47.33 Obstructive sleep apnea (adult) (pediatric); E66.9 Obesity, unspecified; I25.10 Atherosclerotic heart disease of native coronary artery without angina pectoris; N43.3 Hydrocele, unspecified; N45.1 Epididymitis; Z79.01 Long term (current) use of anticoagulants; Z82.1 Family history of blindness and visual loss; Z86.73 Personal history of transient ischemic attack (TIA), and cerebral infarction without residual deficits; Z95.0 Presence of cardiac pacemaker; Z68.33 Body mass index [BMI] 33.0-33.9, adult
CPT/HCPCS: 36415; 36600; 70450; 71010; 76870; 78582; 80048; 80053; 80076; 80202; 80307; 81001; 82140; 82553; 82803; 82947; 83605; 83690; 83735; 83880; 84443; 84484; 85007; 85025; 85379; 85610; 85730; 87040; 87070; 87205; 87449; 87641; 87804; 87880; 93005; 93306; 93970; 94640; 96365; 96368; 96374; 96375; A9540; A9558; G0238; J0456; J0696; J2405; J2543; J2930; J3370; J3475; J7040; J7050; J7120; J7620; 99285-25; G0479; J7030

== ENCOUNTER 2017-05-11 22:34 | Emergency (ER) | payer MEDICARE ==
[~2017-05-11] VITALS: Ht 185.4 cm; Wt 112.7 kg
[~2017-05-11 22:34] MED LIST: AMIO200T2 PO; METO-239 PO; PRIM50TA24 PO; WARF5TAB7 PO
[2017-05-12 00:34] LABS: BASO % 0 % (0-3); EOS # 0.4 x10^3/uL (0.0-0.7); EOS % 5 % (0-3); HEMOGLOBIN 12.1 g/dL (13.0-17.5); LYMPH % 22 % (24-48); MEAN CORPUSCULAR HEMOGLOBIN 32 pg (25-35); MEAN CORPUSCULAR HGB CONC 35 g/dL (31-37); MEAN CORPUSCULAR VOLUME 93 fL (79-100); MONO # 0.8 x10^3/uL (0.0-1.1); MONO % 9 % (0-9); NEUT # 5.7 x10^3uL (1.8-7.7); NEUT % 64 % (31-73); PLATELET COUNT 197 x10^3/uL (140-400); RED BLOOD COUNT 3.78 x10^6/uL (4.30-5.70); RED CELL DISTRIBUTION WIDTH 14.3 % (11.5-14.5)
[2017-05-12 00:45] LABS: ALBUMIN 2.8 g/dL (3.4-5.0); ALBUMIN/GLOBULIN RATIO 0.8 (1.0-1.7); CALCIUM 8.5 mg/dL (8.5-10.1); CREATININE 1.2 mg/dL (0.7-1.3); POTASSIUM 3.4 mmol/L (3.5-5.1); TOTAL BILIRUBIN 0.5 mg/dL (0.2-1.0); TOTAL PROTEIN 6.5 g/dL (6.4-8.2)
[2017-05-12 01:36] VITALS: BP 145/61
--- NOTE | 2017-05-12 06:36 | ED.ADGEN ---
Past History Past Medical History: A-Fib, CAD, CVA, Hypertension, Other Past Surgical History: Pacemaker Alcohol Use: None Drug Use: None Adult General Chief Complaint Chief Complaint Right arm pain HPI HPI Patient is a 76-year-old male released from hospital yesterday for sepsis who presents with right arm pain over PICC line insertion site. No fever chills, nausea vomiting or sweats. Reports generally weakness present on the hospital. No other acute symptoms or complaints. Patient dropped off by family members. [] Review of Systems Review of Systems Review symptoms as per history of present illness. All other review symptoms are negative. Allergies Allergies Allergies Coded Allergies Type Severity Reaction Last Updated Verified iodine Allergy Intermediate 05/12/17 Yes Physical Exam Physical Exam Constitutional: Well developed, well nourished, no acute distress, non-toxic appearance. [] HENT: Normocephalic, atraumatic, bilateral external ears normal, oropharynx moist, no oral exudates, nose normal. [] Eyes: PERRLA, EOMI, conjunctiva normal, no discharge. [] Neck: Normal range of motion, no tenderness, supple, no stridor. [] Cardiovascular:Heart rate regular rhythm, no murmur [] Lungs & Thorax: Bilateral breath sounds clear to auscultation [] Abdomen: Bowel sounds normal, soft, no tenderness, no masses, no pulsatile masses. [] Skin: Warm, dry, no erythema, no rash. [] Back: No tenderness, no CVA tenderness. [] Extremities: Right upper extremity, pain, tenderness over PICC line, no swelling , or rash. [] Neurologic: Alert and oriented X 2, normal motor function, normal sensory function, no focal deficits noted. [] Psychologic: Affect normal, judgement normal, mood normal. [] Current Patient Data Vital Signs Vital Signs Date Time Temp Pulse Resp B/P (MAP) Pulse Ox O2 Delivery O2 Flow Rate FiO2 05/12/17 01:36 70 20 145/61 (89) 96 Room Air 05/11/17 23:00 98.8 Lab Results Laboratory Tests Test 05/12/17 00:18 White Blood Count 9.0 x10^3/uL (4.0-11.0) Red Blood Count 3.78 x10^6/uL (4.30-5.70) L Hemoglobin 12.1 g/dL (13.0-17.5) L Hematocrit 35.0 % (39.0-53.0) L Mean Corpuscular Volume 93 fL (79-100) Mean Corpuscular Hemoglobin 32 pg (25-35) Mean Corpuscular Hemoglobin Concent 35 g/dL (31-37) Red Cell Distribution Width 14.3 % (11.5-14.5) Platelet Count 197 x10^3/uL (140-400) Neutrophils (%) (Auto) 64 % (31-73) Lymphocytes (%) (Auto) 22 % (24-48) L Monocytes (%) (Auto) 9 % (0-9) Eosinophils (%) (Auto) 5 % (0-3) H Basophils (%) (Auto) 0 % (0-3) Neutrophils # (Auto) 5.7 x10^3uL (1.8-7.7) Lymphocytes # (Auto) 2.0 x10^3/uL (1.0-4.8) Monocytes # (Auto) 0.8 x10^3/uL (0.0-1.1) Eosinophils # (Auto) 0.4 x10^3/uL (0.0-0.7) Basophils # (Auto) 0.0 x10^3/uL (0.0-0.2) Prothrombin Time 20.5 SEC (9.4-11.4) H Prothrombin Time INR 2.0 (0.9-1.1) H Sodium Level 140 mmol/L (136-145) Potassium Level 3.4 mmol/L (3.5-5.1) L Chloride Level 104 mmol/L (98-107) Carbon Dioxide Level 31 mmol/L (21-32) Anion Gap 5 (6-14) L Blood Urea Nitrogen 18 mg/dL (8-26) Creatinine 1.2 mg/dL (0.7-1.3) Estimated GFR (Cockcroft-Gault) 59.0 BUN/Creatinine Ratio 15 (6-20) Glucose Level 90 mg/dL (70-99) Calcium Level 8.5 mg/dL (8.5-10.1) Total Bilirubin 0.5 mg/dL (0.2-1.0) Aspartate Amino Transferase (AST) 21 U/L (15-37) Alanine Aminotransferase (ALT) 39 U/L (16-63) Alkaline Phosphatase 62 U/L (46-116) Total Protein 6.5 g/dL (6.4-8.2) Albumin 2.8 g/dL (3.4-5.0) L Albumin/Globulin Ratio 0.8 (1.0-1.7) L EKG EKG [] Radiology/Procedures Radiology/Procedures [Chest x-ray: PICC line in good position] Course & Med Decision Making Course & Med Decision Making Pertinent Labs and Imaging studies reviewed. (See chart for details) [Right arm pain consistent with post-PICC line insertion pain. Lab work, x-ray otherwise unremarkable. Patient discharged home to custody of grandson with instructions to follow hsoptial discharge instructions.] Final Impression Final Impression [1. right arm pain 2. s/p picc line placement] Problems: Dragon Disclaimer Dragon Disclaimer This electronic medical record was generated, in whole or in part, using a voice recognition dictation system. ZULLY DENNY DO May 12, 2017 06:36
--- NOTE | 2017-05-12 10:30 | RAD ---
Indication chest pain. Weakness. A single view of the chest was obtained and is compared to an examination yesterday. Heart and pulmonary vessels are within normal limits. The lungs are clear. There has not been a significant change in the appearance of the chest relative to the previous exam. Bipolar cardiac pacing device and right PICC line are again noted. IMPRESSION: No acute or focal process. No significant change
== END 2017-05-12 01:36 | disposition home or self-care (01) ==
LOC: ER 22:34
DX: M79.601 Pain in right arm (principal); I10 Essential (primary) hypertension; I48.91 Unspecified atrial fibrillation; I25.10 Atherosclerotic heart disease of native coronary artery without angina pectoris; Z95.9 Presence of cardiac and vascular implant and graft, unspecified; Z86.73 Personal history of transient ischemic attack (TIA), and cerebral infarction without residual deficits; Z91.041 Radiographic dye allergy status
CPT/HCPCS: 36415; 71010; 80053; 85025; 85610; 99285-25

== ENCOUNTER 2018-07-23 16:39 | Emergency (ER) | payer MEDICARE ==
[~2018-07-23] VITALS: Ht 185.4 cm; Wt 112.7 kg
[~2018-07-23 16:39] MED LIST changes: -AMIO200T2 PO; +AMIO200T4 PO; +WARF-31 PO; -WARF5TAB7 PO
--- NOTE | 2018-07-23 17:14 | PHYS DOC ---
Past History Past Medical History: A-Fib, CAD, CVA, Hypertension, Other Past Surgical History: Pacemaker Alcohol Use: None Drug Use: None Adult General Chief Complaint Chief Complaint: HIP PAIN HPI HPI Patient is a 77 year old male who presents with right hip pain. Patient slipped while getting out of the hot tub at a local gym just prior to arrival. Patient fell onto his hip on concrete. No head injury, no loss of consciousness, no syncopal episode. Patient is able to ambulate. Patient is on Coumadin for a known history of atrial fibrillation. Patient is denying any chest pain, denying any other injury. Increased pain with moving his hip. Reports the pain is mild to moderate in intensity, improved pain with holding still. [] Review of Systems Review of Systems Constitutional: Denies fever or chills [] Eyes: Denies change in visual acuity, redness, or eye pain [] HENT: Denies nasal congestion or sore throat [] Respiratory: Denies cough or shortness of breath [] Cardiovascular: No chest pain or palpitations[] GI: Denies abdominal pain, nausea, vomiting, bloody stools or diarrhea [] : Denies dysuria or hematuria [] Musculoskeletal: Denies back pain , see history of present illness [] Integument: Denies rash or skin lesions [] Neurologic: Denies headache, focal weakness or sensory changes [] Endocrine: Denies polyuria or polydipsia [] All other systems were reviewed and found to be within normal limits, except as documented in this note. Allergies Allergies Allergies Coded Allergies Type Severity Reaction Last Updated Verified iodine Allergy Intermediate 05/12/17 Yes Physical Exam Physical Exam Constitutional: Well developed, well nourished, no acute distress, non-toxic appearance. [] HENT: Normocephalic, atraumatic, bilateral external ears normal, oropharynx moist, no oral exudates, nose normal. [] Eyes: PERRLA, EOMI, conjunctiva normal, no discharge. [] Neck: Normal range of motion, no tenderness, supple, no stridor. [] Cardiovascular:Heart rate was within normal range, irregular irregular rhythm, no murmur [] Lungs & Thorax: Bilateral breath sounds clear to auscultation [] Abdomen: Bowel sounds normal, soft, no tenderness, no masses, no pulsatile masses. [] Skin: Warm, dry, no erythema, no rash. [] Back: No tenderness, no CVA tenderness. [] Extremities: Tenderness is present over the right hip and bilateral gluteal region, there is bruising present, a joined below was evaluated and was normal, and distally there was no cyanosis, no clubbing, ROM intact, no edema. [] Neurologic: Alert and oriented X 3, normal motor function, normal sensory function, no focal deficits noted. [] Psychologic: Affect normal, judgement normal, mood normal. [] EKG EKG [] Radiology/Procedures Radiology/Procedures Right hip and pelvis x-ray were negative for fracture or dislocation [] Course & Med Decision Making Course & Med Decision Making Pertinent Labs and Imaging studies reviewed. (See chart for details) Medical decision making: There is no evidence of fracture or dislocation, patient is able to ambulate.[] Dragon Disclaimer Dragon Disclaimer This electronic medical record was generated, in whole or in part, using a voice recognition dictation system. Departure Departure: Impression: Primary Impression: Contusion of right hip Disposition: 01 HOME, SELF-CARE Condition: GOOD Referrals: ALBERTA CAMPOS MD (PCP) Follow-up in 2 days Patient Instructions: Contusion Additional Instructions: Follow-up with your regular doctor in 2 days. Take Tylenol as needed, as directed for pain. Return to the ER if worsening pain, inability to walk, or any other concerns. Problem Qualifiers Primary Impression: Contusion of right hip Encounter type: initial encounter Qualified Codes: S70.01XA - Contusion of right hip, initial encounter SIVAKUMAR BROUSSARD DO Jul 23, 2018 17:13
--- NOTE | 2018-07-23 17:56 | RAD ---
Indication: Right hip pain status post fall TECHNIQUE: AP pelvis and multiple views of the right hip joint COMPARISON: None Findings/ impression: The bilateral hip joints are symmetric without evidence of osteoarthritis. SI joints are within normal limits. No acute fracture or laceration. Electronically signed by: Bereket Plata DO (07/23/2018 5:52 PM) [facility]
[2018-07-23 18:29] VITALS: BP 129/61
[2018-07-23] MEDS ORDERED: ACETAMINOPHEN 500 MG TABLET PO ONE (18:30)
== END 2018-07-23 18:29 | disposition home or self-care (01) ==
LOC: ER 16:39
DX: S70.01XA Contusion of right hip, initial encounter (principal); I48.91 Unspecified atrial fibrillation; I10 Essential (primary) hypertension; I25.10 Atherosclerotic heart disease of native coronary artery without angina pectoris; Z86.73 Personal history of transient ischemic attack (TIA), and cerebral infarction without residual deficits; Z95.0 Presence of cardiac pacemaker; Z91.041 Radiographic dye allergy status; W01.0XXA Fall on same level from slipping, tripping and stumbling without subsequent striking against object, initial encounter; Y93.89 Activity, other specified; Y92.89 Other specified places as the place of occurrence of the external cause; Y99.8 Other external cause status
CPT/HCPCS: 73502; 99284